=== PATIENT | male | born 1980 | race Caucasian/White ===

== ENCOUNTER 2017-05-14 14:53 | Emergency (ER) | payer OTHER ==
[2017-05-14] MEDS ORDERED: Furosemide IV* 10 MG/ML 2 ML VIAL (20 MG) IV SLOW PU ONE (15:47)
[2017-05-14 15:56] LABS: ABS Basophils 0.1 10^3/ul (0-0.2); ABS Eosinophils 0.1 10^3/ul (0-0.6); ABS Lymphocytes 1.4 10^3/ul (1.0-4.8); ABS Neutrophils 9.7 10^3/ul (1.5-7.7); ABS Nucleated RBC 0 10^3/ul; Eosinophil % 0.6 % (0-6); Hematocrit 44 % (42-52); Hemoglobin 15.5 g/dl (14.0-18.0); Lymphocyte % 11.2 % (25-47); Mean Corpuscular HGB Conc 35 g/dl (31-36); Mean Corpuscular Hemoglobin 31 pg (27-31); Mean Corpuscular Volume 87 fL (80-94); Mean Platelet Volume 8 um3 (7.4-10.4); Nucleated Red Blood Cells % 0.1; Platelet Count 235 10^3/ul (150-450); Red Blood Count 5.02 10^6/ul (4.0-5.4); Red Cell Distribution Width 13 % (10.5-15); White Blood Count 12.2 10^3/ul (3.5-10.8)
--- NOTE | 2017-05-14 16:01 | RAD ---
INDICATION: Hypertension COMPARISON: None TECHNIQUE: An AP portable view obtained at 1536 hours is submitted. FINDINGS: Bones/Soft Tissues: There are no acute bony findings. Cardiomediastinal: The cardiomediastinal silhouette is normal. Lungs: There are no infiltrates. Pleura: There are no pleural effusions. Other: None IMPRESSION: NO ACTIVE DISEASE.
[2017-05-14 16:09] LABS: EGFR Non-African American 135.8 (>60)
[2017-05-14 16:57] LABS: Urine Appearance Clear; Urine Blood Negative (Negative); Urine Color Yellow; Urine Ketones Negative (Negative); Urine Protein Negative (Negative); Urine Specific Gravity 1.008 (1.010-1.030); Urine Urobilinogen Negative (Negative)
[2017-05-14 17:33] VITALS: BP 163/82
[2017-05-14] MEDS ORDERED: Lisinopril TAB* 10 MG PO ONE (18:00)
[2017-05-14] MEDS ORDERED: Hydrochlorothiazide TAB* 25 MG PO ONE (18:00)
--- NOTE | 2017-05-14 18:35 | ED ---
Andra Díaz Thomas, scribed for Orville Hare MD on 05/14/17 at 1536 . Complex/Multi-Sys Presentation - HPI Summary HPI Summary: The patient is a 36 year old male referred form his primary care physician with elevated blood pressure. In the examination room, the patients blood pressure is 182/98. The patient has been lightheaded and dizzy in the last few days as well. - History Of Current Complaint Chief Complaint: EDHypertension Time Seen by Provider: 05/14/17 14:58 Hx Obtained From: Patient Onset/Duration: Lasting Weeks, Still Present Timing: Constant Severity Currently: Severe Location: Negative Aggravating Factor(s): Unknown Alleviating Factor(s): None Associated Signs And Symptoms: Positive: Other - Lightheadedness, dizziness - Allergies/Home Medications Allergies/Adverse Reactions: Allergies Allergy/AdvReac Type Severity Reaction Status Date / Time No Known Allergies Allergy Verified 05/14/17 15:09 PMH/Surg Hx/FS Hx/Imm Hx Endocrine/Hematology History: Reports: Hx Thyroid Disease - hypothyroidism Denies: Hx Diabetes Cardiovascular History: Reports: Hx Hypertension Respiratory History: Reports: Hx Asthma - Child kimball asthma Denies: Hx Chronic Obstructive Pulmonary Disease (COPD) GI History: Denies: Hx Ulcer - Surgical History Surgery Procedure, Year, and Place: Hernia repair 1982 Infectious Disease History: No Infectious Disease History: Denies: Hx Clostridium Difficile, Hx Hepatitis, Hx Human Immunodeficiency Virus (HIV), Hx Shingles, Hx Tuberculosis, Traveled Outside the [place] in Last 30 Days - Family History Known Family History: Positive: Hypertension - Social History Alcohol Use: Weekly Hx Substance Use: No Substance Use Type: Reports: None Hx Tobacco Use: Yes Smoking Status (MU): Former Smoker Review of Systems Negative: Fever Positive: Other - Elevated BP Neurological: Other - Dizzy, lightheaded All Other Systems Reviewed And Are Negative: Yes Physical Exam - Summary Physical Exam Summary: VITAL SIGNS: Reviewed. GENERAL: Patient is a morbidly obese male is lying comfortable in the stretcher. Patient is not in any acute respiratory distress. HEAD AND FACE: No signs of trauma. No ecchymosis, hematomas or skull depressions. No sinus tenderness. EYES: PERRLA, EOMI x 2, No injected conjunctiva, no nystagmus. EARS: Hearing grossly intact. Ear canals and tympanic membranes are within normal limits. MOUTH: Oropharynx within normal limits. NECK: Supple, trachea is midline, no adenopathy, no JVD, no carotid bruit, no c- spine tenderness, neck with full ROM. CHEST: Symmetric, no tenderness at palpation LUNGS: Clear to auscultation bilaterally. No wheezing or crackles. CVS: Regular rate and rhythm, S1 and S2 present, no murmurs or gallops appreciated. ABDOMEN: Soft, non-tender. No signs of distention. No rebound no guarding, and no masses palpated. Bowel sounds are normal. EXTREMITIES: FROM in all major joints, no edema, no cyanosis or clubbing. NEURO: Alert and oriented x 3. No acute neurological deficits. Speech is normal and follows commands. SKIN: Dry and warm Triage Information Reviewed: Yes Vital Signs On Initial Exam: Initial Vitals Temp Pulse Resp BP Pulse Ox 98.6 F 72 19 200/120 98 05/14/17 14:56 05/14/17 14:56 05/14/17 14:56 05/14/17 14:56 05/14/17 14:56 Vital Signs Reviewed: Yes Diagnostics - Vital Signs Vital Signs Temp Pulse Resp BP Pulse Ox 05/14/17 15:04 69 20 96 05/14/17 15:03 182/98 05/14/17 14:56 98.6 F 72 19 200/120 98 - Laboratory Lab Results: Lab Results 05/14/17 05/14/17 05/14/17 Range/Units 15:42 15:42 15:42 WBC (3.5-10.8) 10^3/ul RBC (4.0-5.4) 10^6/ul Hgb (14.0-18.0) g/dl Hct (42-52) % MCV (80-94) fL MCH (27-31) pg MCHC (31-36) g/dl RDW (10.5-15) % Plt Count (150-450) 10^3/ul MPV (7.4-10.4) um3 Neut % (Auto) (38-83) % Lymph % (Auto) (25-47) % Stanton % (Auto) (1-9) % Eos % (Auto) (0-6) % Baso % (Auto) (0-2) % Absolute Neuts (auto) (1.5-7.7) 10^3/ul Absolute Lymphs (auto) (1.0-4.8) 10^3/ul Absolute Monos (auto) (0-0.8) 10^3/ul Absolute Eos (auto) (0-0.6) 10^3/ul Absolute Basos (auto) (0-0.2) 10^3/ul Absolute Nucleated RBC 10^3/ul Nucleated RBC % APTT 31.0 (26.0-36.3) seconds Sodium 135 (133-145) mmol/L Potassium 3.8 (3.5-5.0) mmol/L Chloride 102 (101-111) mmol/L Carbon Dioxide 24 (22-32) mmol/L Anion Gap 9 (2-11) mmol/L BUN 10 (6-24) mg/dL Creatinine 0.66 L (0.67-1.17) mg/dL Est GFR ( Amer) 174.7 (>60) Est GFR (Non-Af Amer) 135.8 (>60) BUN/Creatinine Ratio 15.2 (8-20) Glucose 103 H (70-100) mg/dL Lactic Acid (0.5-2.0) mmol/L Calcium 9.5 (8.6-10.3) mg/dL Total Bilirubin 0.50 (0.2-1.0) mg/dL AST 31 (13-39) U/L ALT 43 (7-52) U/L Alkaline Phosphatase 74 (34-104) U/L Total Creatine Kinase 140 (10-223) U/L CK-MB (CK-2) 1.8 (0.6-6.3) ng/mL Troponin I 0.00 (<0.04) ng/mL B-Natriuretic Peptide 24 ( - 100) pg/mL Total Protein 8.0 (6.4-8.9) g/dL Albumin 4.3 (3.2-5.2) g/dL Globulin 3.7 (2-4) g/dL Albumin/Globulin Ratio 1.2 (1-3) TSH 3.03 (0.34-5.60) mcIU/mL Urine Color Urine Appearance Urine pH (5-9) Ur Specific [place] (1.010-1.030) Urine Protein (Negative) Urine Ketones (Negative) Urine Blood (Negative) Urine Nitrate (Negative) Urine Bilirubin (Negative) Urine Urobilinogen (Negative) Ur Leukocyte Esterase (Negative) Urine Glucose (Negative) 05/14/17 05/14/17 05/14/17 Range/Units 15:42 15:42 16:20 WBC 12.2 H (3.5-10.8) 10^3/ul RBC 5.02 (4.0-5.4) 10^6/ul Hgb 15.5 (14.0-18.0) g/dl Hct 44 (42-52) % MCV 87 (80-94) fL MCH 31 (27-31) pg MCHC 35 (31-36) g/dl RDW 13 (10.5-15) % Plt Count 235 (150-450) 10^3/ul MPV 8 (7.4-10.4) um3 Neut % (Auto) 79.5 (38-83) % Lymph % (Auto) 11.2 L (25-47) % Stanton % (Auto) 7.9 (1-9) % Eos % (Auto) 0.6 (0-6) % Baso % (Auto) 0.8 (0-2) % Absolute Neuts (auto) 9.7 H (1.5-7.7) 10^3/ul Absolute Lymphs (auto) 1.4 (1.0-4.8) 10^3/ul Absolute Monos (auto) 1.0 H (0-0.8) 10^3/ul Absolute Eos (auto) 0.1 (0-0.6) 10^3/ul Absolute Basos (auto) 0.1 (0-0.2) 10^3/ul Absolute Nucleated RBC 0 10^3/ul Nucleated RBC % 0.1 APTT (26.0-36.3) seconds Sodium (133-145) mmol/L Potassium (3.5-5.0) mmol/L Chloride (101-111) mmol/L Carbon Dioxide (22-32) mmol/L Anion Gap (2-11) mmol/L BUN (6-24) mg/dL Creatinine (0.67-1.17) mg/dL Est GFR ( Amer) (>60) Est GFR (Non-Af Amer) (>60) BUN/Creatinine Ratio (8-20) Glucose (70-100) mg/dL Lactic Acid 1.5 (0.5-2.0) mmol/L Calcium (8.6-10.3) mg/dL Total Bilirubin (0.2-1.0) mg/dL AST (13-39) U/L ALT (7-52) U/L Alkaline Phosphatase (34-104) U/L Total Creatine Kinase (10-223) U/L CK-MB (CK-2) (0.6-6.3) ng/mL Troponin I (<0.04) ng/mL B-Natriuretic Peptide ( - 100) pg/mL Total Protein (6.4-8.9) g/dL Albumin (3.2-5.2) g/dL Globulin (2-4) g/dL Albumin/Globulin Ratio (1-3) TSH (0.34-5.60) mcIU/mL Urine Color Yellow Urine Appearance Clear Urine pH 6.0 (5-9) Ur Specific [place] 1.008 L (1.010-1.030) Urine Protein Negative (Negative) Urine Ketones Negative (Negative) Urine Blood Negative (Negative) Urine Nitrate Negative (Negative) Urine Bilirubin Negative (Negative) Urine Urobilinogen Negative (Negative) Ur Leukocyte Esterase Negative (Negative) Urine Glucose Negative (Negative) Result Diagrams: 05/14/17 15:42 05/14/17 15:42 Lab Statement: Any lab studies that have been ordered have been reviewed, and results considered in the medical decision making process. - Radiology CXR Xray Interpretation: No Acute Changes - NO ACTIVE DISEASE. Dr. Hare has reviewed this report. Radiology Interpretation Completed By: Radiologist - EKG 14:54 Cardiac Rate: NL EKG Rhythm: Sinus Rhythm - at 68 BPM EKG Interpretation: No ST elevations. Complex Multi-Symp Course/Dx Assessment/Plan: The patient is a 36 year old male referred form his primary care physician with elevated blood pressure. In the examination room, the patients blood pressure is 182/98. The patient has been lightheaded and dizzy in the last few days as well. Test results are without significant abnormalities except WBC 12.2. Urinalysis is negative for UTI. Troponin is 0.00. Initially, the blood pressure for this patient was elevated at 20/120. The patient was given Lasix. Right now, the patients blood pressure is 167/86. Therefore, the patient will be discharged home to follow up with primary care. The patient was instructed to take Lisinopril 10 mg instead of 5 mg and follow up with her primary care provider. Since the patient is feeling better, the patient will be discharged home to follow up with his primary care provider. The patient is hemodynamically stable and alert and oriented x 3. I discussed all the findings and test results with the patient. Patient was instructed to return to the emergency room immediately if any of the symptoms return or worsens. Plan of care was discussed with the patient and understands and agrees. All questions were answered at patient satisfaction. There were no further complaints or concerns. Lung exam before discharge: CTA B/L. Good air exchange. No wheezing or crackles heard. CVS: S1 and S2 present. No murmurs appreciated. Patient is alert and oriented x 3. Patient is hemodynamically stable. Patient will be discharged home with follow up PCP in the next 2-3 days - Diagnoses Provider Diagnoses: Uncontrolled hypertension Discharge - Discharge Plan Condition: Stable Disposition: HOME Patient Education Materials: Hypertension (ED) Referrals: John Gaitan MD [Primary Care Provider] - 3 Days Additional Instructions: Follow up with your primary care physician in three days. Take Lisinopril 10 mg until your appointment with your primary care provider. Return to the emergency department for any new or worsening symptoms. The documentation as recorded by the Andra barrera Thomas accurately reflects the service I personally performed and the decisions made by , Orville Hare MD.
[2017-05-15] MEDS ORDERED: Lisinopril/HCTZ 10/12.5(NF) TAB PO ONE (17:20)
== END 2017-05-14 17:37 | disposition home or self-care (01) ==
LOC: ED 14:53
DX: I10 Essential (primary) hypertension (principal); Z87.891 Personal history of nicotine dependence
CPT/HCPCS: 36415; 71045; 80053; 81003; 82550; 82553; 83605; 83880; 84443; 84484; 85025; 85730; 93005; 96374; 99283; A9270-GY; J1940

== ENCOUNTER 2019-01-20 06:01 | Day surgery (SDC) | payer OTHER ==
[~2019-01-20 06:01] MED LIST: Buffered Lidocaine 1% SYRIN* 1 ML/SYRINGE INTRADERM ONE; Lactated Ringers 1000 ML Bag* 1,000 ML IV SCH; Metoclopramide IV* 5 MG/ML 2 ML VIAL IV SLOW PU ONE
[2019-01-20] MEDS ORDERED: Buffered Lidocaine 1% SYRIN* 1 ML/SYRINGE INTRADERM ONE (07:35)
[2019-01-20] MEDS ORDERED: hydrALAZINE IV* 20 MG/ML VIAL ONE (07:55)
[2019-01-20] MEDS ORDERED: hydrALAZINE IV* 20 MG/ML VIAL IV SLOW PU ONE (07:56)
[2019-01-20] MEDS ORDERED: Metoclopramide IV* 5 MG/ML 2 ML VIAL ONE (08:05)
[2019-01-20] MEDS ORDERED: Midazolam* 1 MG/ML 2 ML VIAL (2 MG) ONE (08:33)
[2019-01-20] MEDS ORDERED: fentaNYL* 50 MCG/ML 2 ML VIAL (100 MCG VIAL) ONE (08:33)
[2019-01-20] MEDS ORDERED: Levalbuterol HFA INHALER* 1 PUFF MDI ONE (09:09)
[2019-01-20] MEDS ORDERED: Propofol* 10 MG/ML 20 ML BTL ONE (09:15)
[2019-01-20] MEDS ORDERED: Lidocaine 2% PF * 5 ML VIAL ONE (09:15)
[2019-01-20] MEDS ORDERED: Succinylcholine* 20 MG/ML 10 ML VIAL ONE (09:15)
[2019-01-20] MEDS ORDERED: Ondansetron INJ* 2 MG/ML VIAL IV PRN (09:35)
[2019-01-20] MEDS ORDERED: Naloxone* 0.4 MG/ML 1 ML VIAL IV PRN (09:35)
[2019-01-20] MEDS ORDERED: DiMENhydriNATE IV* 50 MG/ML VIAL IV PUSH PRN (09:35)
[2019-01-20 10:36] VITALS: BP 125/75
--- NOTE | 2019-01-20 22:34 | PRO ---
DATE: 01/20/19 - ENDO REFERRING PHYSICIANS : John Gaitan; Jomar Juarez * PROCEDURE: Upper gastrointestinal endoscopy with monitored anesthesia care and gastric biopsy INDICATION: This 38-year-old man, morbidly obese, comes in for pre-bariatric assessment. He has a history of morbid obesity, type 2 diabetes, hypertension, sleep apnea, anxiety and depression. His only prior surgeries have been a left inguinal hernia repair at age 4 and removal of a freckle from the left eye in 1992. He does take some Advil sporadically. It is difficult to get that precisely defined as it is not everyday. He has never had any acid dyspeptic problems. Informed consent was obtained with an opportunity for questions, special concerns, and a travel discussion. He is provisionally in for surgery on . ENDOSCOPIST: Dr. Dang MEDICATIONS: Per Anesthesia. FINDINGS: He was positioned left side down after being intubated. ESOPHAGOGASTRODUODENOSCOPY: Larynx - not seen as the area was too narrow with opposed mucous membrane surfaces. Esophagus - easily entered, the mucosa is normal in the upper, mid, and lower esophagus with the EG junction at 43 to 44. There was no hiatal hernia and no laxity. There were no erosions. Stomach - normal contours and rugal folds. There was some minimal erythema and minimal small swollen erosions in the prepyloric area and a couple in the gastric body. They were truly minimal. Two biopsies were taken from greater curvature and also a CLOtest. Duodenum - the pylorus, bulb, and second through fourth portions were normal. IMPRESSION: Minimal gastritis - helicobacter assessment pending. Addendum: Clotest Positive - formalin negative; immunostain requested [id number]/[facility] #: [id number] [facility]
== END 2019-01-20 10:47 | disposition home or self-care (01) ==
LOC: OR 06:01
PROVIDERS: ATTEND Internal Medicine Gastroenterology
DX: Z01.818 Encounter for other preprocedural examination (principal); E66.01 Morbid (severe) obesity due to excess calories; Z68.43 Body mass index [BMI] 50.0-59.9, adult; K21.9 Gastro-esophageal reflux disease without esophagitis; K29.70 Gastritis, unspecified, without bleeding; I10 Essential (primary) hypertension; G47.33 Obstructive sleep apnea (adult) (pediatric); K76.0 Fatty (change of) liver, not elsewhere classified; E11.9 Type 2 diabetes mellitus without complications; Z79.84 Long term (current) use of oral hypoglycemic drugs; E29.1 Testicular hypofunction; E03.9 Hypothyroidism, unspecified; F41.9 Anxiety disorder, unspecified; Z87.891 Personal history of nicotine dependence
CPT/HCPCS: 87077; 88305; 88342; A9270-GY; J0330; J0360; J2250; J2704; J2765; J3010

== ENCOUNTER 2019-01-31 10:16 | Emergency (ER) | payer OTHER ==
--- NOTE | 2019-01-31 10:35 | ED ---
Hypertension - HPI Summary HPI Summary: Pt is a 38 y/o M presenting to the ED with a chief complaint of hypertension. Pt states this is a chronic issue, but this morning he was at a GI appointment when they took his blood pressure and it was around 190/110. He was supposed to have a stress test last week but his blood pressure was too high and Dr. Ngo would not do it. He normally takes 40mg Lisinopril and 12.5mg of Metoprolol. He denies CP, SOB, ENCARNACION, visual changes, or changes in gait. He reports some added stress. Medications reviewed. Allergies noted. - History of Current Complaint Chief Complaint: EDHypertension Stated Complaint: HYPERTENSION PER PT Time Seen by Provider: 01/31/19 10:25 Hx Obtained From: Patient Onset/Duration: Started Hours Ago, Still Present Timing: Constant, Lasting Hours Reported Blood Pressure Prior To Arrival: 190/110 Aggravating Factor(s): Nothing Alleviating Factor(s): Nothing Associated Signs & Symptoms: Anxiety/Stress - stress - Allergies/Home Medications Allergies/Adverse Reactions: Allergies Allergy/AdvReac Type Severity Reaction Status Date / Time No Known Allergies Allergy Verified 01/20/19 07:49 PMH/Surg Hx/FS Hx/Imm Hx Previously Healthy: Yes Endocrine/Hematology History: Reports: Hx Diabetes - boderline..taking metformin , Hx Thyroid Disease - ON MEDS HYPO Cardiovascular History: Reports: Hx Hypertension - ON MEDS PT. STATES CONTROLLED OCCAS HIGH Respiratory History: Reports: Hx Asthma - Child kimball asthma, Hx Sleep Apnea Denies: Hx Chronic Obstructive Pulmonary Disease (COPD) GI History: Reports: Other GI Disorders - BIARIATRIC SURGERY NEEDED Denies: Hx Ulcer History: Reports: Other Problems/Disorders - HYPOGONAIDISM Denies: Hx Dialysis, Hx Renal Disease Sensory History: Reports: Hx Contacts or Glasses Denies: Hx Hearing Aid Opthamlomology History: Reports: Hx Contacts or Glasses Psychiatric History: Reports: Hx Anxiety - ON MEDS CONTROLLED PT. STATES, Hx Depression - Surgical History Surgery Procedure, Year, and Place: Hernia repair 1982. REMOVAL LEFT EYE FRECKLE SCLEARA 1992 Hx Anesthesia Reactions: No Infectious Disease History: No Infectious Disease History: Denies: Hx Clostridium Difficile, Hx Hepatitis, Hx Human Immunodeficiency Virus (HIV), Hx Shingles, Hx Tuberculosis, Traveled Outside the [place] in Last 30 Days - Family History Known Family History: Positive: Hypertension - Social History Alcohol Use: Weekly Alcohol Amount: 7 DRINKS WEEKLY BEER OR WINE, not recently Hx Substance Use: No Substance Use Type: Reports: Marijuana Substance Use Comment - Amount & Last Used: 2 X YEARLY Hx Tobacco Use: Yes Smoking Status (MU): Former Smoker Review of Systems Positive: Other - HTN Eyes: Negative Negative: Chest Pain Negative: Shortness Of Breath Negative: Other - change in gait Negative: Headache Positive: Other - stressed All Other Systems Reviewed And Are Negative: Yes Physical Exam - Summary Physical Exam Summary: Constitutional: Well-developed, Well-nourished, Alert. (-) Distressed Skin: Warm, Dry HENT: Normocephalic; Atraumatic Eyes: Conjunctiva normal Neck: Musculoskeletal ROM normal neck. (-) JVD, (-) Stridor, (-) Tracheal deviation Cardio: Rhythm regular, rate normal, Heart sounds normal; Intact distal pulses; Radial pulses are 2+ and symmetric. (-) Murmur Pulmonary/Chest wall: Effort normal. (-) Respiratory distress, (-) Wheezes, (-) Rales Abd: Soft, (-) tenderness, (-) Distension, (-) Guarding, (-) Rebound Musculoskeletal: (-) Edema Lymph: (-) Cervical adenopathy Neuro: Alert, Oriented x3 Psych: Mood and affect Normal Triage Information Reviewed: Yes Vital Signs On Initial Exam: Initial Vitals Temp Pulse Resp BP Pulse Ox 97.0 F 73 18 213/111 97 01/31/19 10:20 01/31/19 10:20 01/31/19 10:20 01/31/19 10:20 01/31/19 10:20 Vital Signs Reviewed: Yes Procedures - Sedation Patient Received Moderate/Deep Sedation with Procedure: No Diagnostics - Vital Signs Vital Signs Temp Pulse Resp BP Pulse Ox 01/31/19 10:20 97.0 F 73 18 213/111 97 - Laboratory Lab Statement: Any lab studies that have been ordered have been reviewed, and results considered in the medical decision making process. Hypertension Course/Dx - Course Course Of Treatment: Patient is here with asymptomatic hypertension. Patient has been taking his blood pressure home and has been consistently having high blood pressure at the level he is today. Patient is being treated by Dr. Awan with increase of his lisinopril dose roughly 2 weeks ago. Patient has no symptoms at this time. Patient has a symptomatically hypertension. Patient' s metoprolol dose was increased from a half tablet to a full tablet every night. - Diagnoses Provider Diagnoses: Asymptomatic hypertension Discharge ED - Sign-Out/Discharge Documenting (check all that apply): Patient Departure - Discharge Plan Condition: Stable Disposition: HOME Prescriptions: Metoprolol Succinate XL TAB* [Toprol XL TAB*] 25 mg PO BEDTIME 7 Days #7 tab.xl Patient Education Materials: Chronic Hypertension (ED) Referrals: John Gaitan MD [Primary Care Provider] - Additional Instructions: Please start taking your increased dose of Metoprolol. Follow up with Dr. Gaitan as well as Dr. Ngo within the next 1-3 days. If you start experiencing chest pain, shortness of breath, one-sided weakness, or slurred speech, call 911 and return to the emergency department. - Billing Disposition and Condition Condition: STABLE Disposition: Home - Attestation Statements Document Initiated by Maritzaibe: Yes Documenting Scribe: Latasha Bruner Provider For Whom Claudio is Documenting (Include Credential): Tony Medeiros MD. Scribe Attestation: Latasha Díaz, scribed for Tony Medeiros MD. on 01/31/19 at 1936. Scribe Documentation Reviewed: Yes Provider Attestation: The documentation as recorded by the scribeLatasha accurately reflects the service I personally performed and the decisions made by , Tony Medeiros MD. Status of Scribe Document: Viewed
--- OUTSIDE RECORDS SUMMARY | 2019-01-31 10:48 | XMS REPORT | Continuity of Care Document ---
:1980 External Reference #:[id number] Author Name Garland Zavala Care Team Providers Name Role Phone John Gaitan MD - Family Care Team Information [employer] [phone] Medicine Problems Active Problems Provider Date Disturbance in sleep behavior Isaura Donis MD Onset: 07/13/2016 Obstructive sleep apnea syndrome Kelli Almeida DNP, RN, GEOSPATIAL INFORMATION SCIENTIST-BC Onset: Morbid obesity Kelli Almeida DNP, RN, GEOSPATIAL INFORMATION SCIENTIST-BC Onset: 09/18/2016 Social History Type Date Description Comments Sex Unknown Tobacco Use Start: Unknown End: Former Cigarette Unknown Smoker ETOH Use Currently consumes 7 drinks a week alcohol Tobacco Use Start: Unknown End: Patient is a former Unknown smoker Recreational Drug Use Current Drug User marijuana once or twice a year Tobacco Use Start: Unknown Heavy tobacco smoker 1PPD x 9 years Quit (more than 10 8 years ago as of cigarettes/day) 2016 Smoking Status Reviewed: 12/15/18 Heavy tobacco smoker 1PPD x 9 years Quit (more than 10 8 years ago as of cigarettes/day) 2017 Exercise Type/Frequency Exercises regularly walking/hiking 3 days a week 1-1/2 to 3 miles Allergies, Adverse Reactions, Alerts Description No Known Drug Allergies Medications Active Medications SIG Qnty Indications Ordering Date Provider Levothyroxine Sodium 1 by mouth every Unknown 07/12/2016 day 125mcg Tablets Prozac 1 by mouth every Unknown 07/12/2016 40mg Capsules day Lisinopril 3 by mouth every Unknown 07/12/2016 10mg Tablets day Flaxseed Oil 1 by mouth every Unknown 07/12/2016 1000mg day Capsules Multivitamin Adult 1 by mouth every Unknown 07/12/2016 day Tablets Metformin HCL 2 tablets once 60tabs John Gaitan 500mg daily MD Analilia Tablets Saxenda 0.6mg injected Unknown 18mg/3ML Solution dailyweek Pen-Inject one,week 2, 1.2mg daily,week-3 1.8mg daily,week-4 2.4mg daily week 5,3mg daily Testosterone 2x pumps daily Unknown 12.5mg/Act (1%) Gel Rosuvastatin Calcium 1 by mouth every Unknown 5mg day Tablets Metoprolol Succinate 1/2 tablet daily John Gaitan ER MD Analilia 25mg Tablets ER 24HR Ibuprofen 200 400-600mg every 6 Unknown 200mg hours as needed Tablets for pain. Immunizations Description No Information Available Vital Signs Date Vital Result Comment 12/15/2018 1:12pm Height 70 inches 5'10" Weight 401.00 lb Heart Rate 69 /min BP Systolic 208 mmHg recheck 177/95 - states he has white coat syndrom BP Diastolic 119 mmHg recheck 177/95 - states he has white coat syndrom O2 % BldC Oximetry 97 % BMI (Body Mass Index) 57.5 kg/m2 06/21/2018 9:39am Height 70 inches 5'10" Weight 403.00 lb Heart Rate 82 /min BP Systolic Sitting 140 mmHg Rue Lg Cuff BP Diastolic Sitting 90 mmHg Rue Lg Cuff Respiratory Rate 18 /min O2 % BldC Oximetry 96 % on Ra BMI (Body Mass Index) 57.8 kg/m2 Results Test Date Facility Test Result H/L Range Note CBC No Diff 01/03/2019 [facility] White Blood 7.5 10^3/uL Normal 3.5-10.[address] [place] [address] [phone] Red Blood Count 5.37 10^6/uL Normal 4.18-5.48 Hemoglobin 17.0 g/dL Normal 14.0-18.0 Hematocrit 48 % Normal 42-52 Mean Corpuscular Volume 90 fL Normal 80-94 Mean Corpuscular Hemoglobin 32 pg High 27-31 Mean Corpuscular HGB Conc 35 g/dL Normal 31-36 Red Cell Distribution Width 14 % Normal 10-15 Platelet Count 203 10^3/uL Normal 150-450 Mean Platelet Volume 8.5 fL Normal 7.4-10.4 Comp Metabolic 01/03/2019 [facility] Sodium 140 mmol/L Normal 135-[address] [place] [address] [phone] Potassium 4.1 mmol/L Normal 3.5-5.0 Chloride 104 mmol/L Normal 101-111 Co2 Carbon Dioxide 28 mmol/L Normal 22-32 Anion Gap 8 mmol/L Normal 2-11 Glucose 101 mg/dL High 70-100 Blood Urea Nitrogen 9 mg/dL Normal 6-24 Creatinine 0.73 mg/dL Normal 0.67-1.17 BUN/Creatinine Ratio 12.3 Normal 8-20 Calcium 9.6 mg/dL Normal 8.6-10.3 Total Protein 6.9 g/dL Normal 6.4-8.9 Albumin 4.3 g/dL Normal 3.2-5.2 Globulin 2.6 g/dL Normal 2-4 Albumin/Globulin Ratio 1.7 Normal 1-3 Total Bilirubin 0.70 mg/dL Normal 0.2-1.0 Alkaline Phosphatase 81 U/L Normal 34-104 Alt 63 U/L High 7-52 Ast 39 U/L Normal 13-39 Egfr Non- 119.6 >60 Egfr 144.7 >60 1 1 Because ethnic data is not always readily available, this report includes an eGFR for both -Americans and non- Americans. The National Kidney Disease Education Program (NKDEP) does not endorse the use of the MDRD equation for patients that are not between the ages of 18 and 70, are , have extremes of body size, muscle mass, or nutritional status, or are non- or non-. According to the National Kidney Foundation, irrespective of diagnosis, the stage of the disease is based on the level of kidney function: Stage Description GFR(mL/min/1.73 m(2)) 1 Kidney damage with normal or decreased GFR 90 2 Kidney damage with mild decrease in GFR 60-89 3 Moderate decrease in GFR 30-59 4 Severe decrease in GFR 15-29 5 Kidney failure <15 (or dialysis) Procedures Description No Information Available Medical Devices Description No Information Available Encounters Type Date Location Provider Dx Diagnosis Office Visit 12/15/2018 [facility] Chaparrita Prakash NP Z68.43 Body mass index 1:00p (BMI) 50.0-59.9, adult G47.33 Obstructive sleep apnea (adult) (pediatric) Z01.818 Encounter for other preprocedural examination Assessments Date Code Description Provider 12/15/2018 Z68.43 Body mass index (BMI) 50.0-59.9, adult Chaparrita Prakash NP 12/15/2018 G47.33 Obstructive sleep apnea (adult) (pediatric) Chaparrita Prakash NP 12/15/2018 Z01.818 Encounter for other preprocedural examination Chaparrita Prakash NP Plan of Treatment Future Appointment(s):01/20/2019 8:45 am - Ortega Dang MD at [facility] Jwpaznnubeuehyra38/19/2019 - Chaparrita Prakash NPZ68.43 Body mass index (BMI) 50.0- 59.9, ojcogH72.33 Obstructive sleep apnea (adult) (pediatric)Z01.818 Encounter for other preprocedural examination Functional Status Description No Information Available Mental Status Description No Information Available Referrals Description No Information Available
--- OUTSIDE RECORDS SUMMARY | 2019-01-31 10:48 | XMS REPORT | Continuity of Care Document ---
:1980 External Reference #:[id number] Author Name Iraida Ngo M.D. (transmitted by agent of provider Vero Strong) Address [address] [address] Care Team Providers Name Role Phone John Gaitan MD - Family Care Team Information Stand Up Comedian [phone] Medicine Problems Active Problems Provider Date Disturbance in sleep behavior Isaura Donis MD Onset: 07/13/2016 Obstructive sleep apnea syndrome Kelli Almeida DNP, RN, MAIL HANDLER ASSISTANT-BC Onset: Morbid obesity Kelli Almeida DNP, RN, MAIL HANDLER ASSISTANT-BC Onset: 09/18/2016 Social History Type Date Description [...] as of cigarettes/day) 2016 Smoking Status Reviewed: 01/12/19 Heavy tobacco smoker 1PPD x 9 years Quit (more than 10 8 years ago as of cigarettes/day) 2017 Exercise Type/Frequency Exercises regularly walking/hiking 3 days a week 1-1/2 to 3 miles Allergies, Adverse Reactions, Alerts Description No Known Drug Allergies Medications Active Medications SIG Qnty Indications Ordering Date Provider Lisinopril 1 by mouth twice 60tabs Iraida Carballo 01/26/2019 20mg Tablets daily Anika Ngo Levothyroxine Sodium 1 by mouth every Unknown 07/12/2016 day 125mcg Tablets Prozac 1 by mouth every Unknown 07/12/2016 40mg Capsules day Flaxseed Oil 1 by mouth every Unknown 07/12/2016 1000mg day Capsules Multivitamin Adult 1 by mouth every Unknown 07/12/2016 day Tablets Metformin HCL 2 tablets once 60tabs John Gaitan 500mg daily MD Analilia Tablets Saxenda 0.6mg injected Unknown 18mg/3ML Solution dailyweek Pen-Inject one,week 2, 1.2mg daily,week-3 1.8mg daily,week-4 2.4mg daily week 5,3mg daily and as directed Testosterone 2x pumps daily Unknown 12.5mg/Act (1%) Gel Rosuvastatin Calcium 1 by mouth every Unknown 5mg day Tablets Metoprolol Succinate 1/2 tablet daily John Gaitan ER AMD Diana 25mg Tablets ER 24HR Ibuprofen 200 400-600mg every 6 Unknown 200mg hours as needed Tablets for pain. Immunizations Description No Information Available Vital Signs Date Vital Result Comment 01/12/2019 10:49am Height 70 inches 5'10" Weight 401.00 lb Heart Rate 68 /min BP Systolic Sitting 192 mmHg lue large cuff BP Diastolic Sitting 90 mmHg lue large cuff BP Systolic Standing 190 mmHg lue large cuff BP Diastolic Standing 107 mmHg lue large cuff Respiratory Rate 16 /min BMI (Body Mass Index) 57.5 kg/m2 12/15/2018 1:12pm Height 70 inches 5'10" Weight 401.00 lb Heart Rate 69 /min BP Systolic 208 mmHg recheck 177/95 - states he has white coat syndrom BP Diastolic 119 mmHg recheck 177/95 - states he has white coat syndrom O2 % BldC Oximetry 97 % BMI (Body Mass Index) 57.5 kg/m2 Results Test Acquired Date Facility Test Result H/L Range Note Surgical 01/20/2019 [facility] Surgical SEE RESULT [address] [place] [address] [phone] PDFReport [id number] <SEE NOTE> Laboratory test 01/20/2019 [facility] Clotest SEE RESULT [address] [place] [address] [phone] Laboratory test 01/20/2019 [facility] Point of Care 103 mg/dL High 70-10 [address] Glucose 0 [place] [address] [phone] CBC No Diff 01/03/2019 [facility] White Blood 7.5 10^3/uL Normal 3.5-[address] Count 0.8 [place] [address] [phone] Red Blood Count 5.37 10^6/uL Normal 4.18-5.48 Hemoglobin 17.0 g/dL Normal 14.0-18.0 Hematocrit 48 % Normal 42-52 Mean Corpuscular Volume 90 fL Normal 80-94 Mean Corpuscular Hemoglobin 32 pg High 27-31 Mean Corpuscular HGB Conc 35 g/dL Normal 31-36 Red Cell Distribution Width 14 % Normal 10-15 Platelet Count 203 10^3/uL Normal 150-450 Mean Platelet Volume 8.5 fL Normal 7.4-10.4 Comp Metabolic 01/03/2019 [facility] Sodium 140 mmol/L Normal 135-[address] [place] [address] [phone] Potassium 4.1 mmol/L Normal 3.5-5.0 Chloride 104 [...] Egfr Non- 119.6 >60 Egfr 144.7 >60 4 1 SEE RESULT BELOW Name: DEVIN FRANCIS : [address]: Ortega Dang MD Acct: [id number] Unit: [id number] AGE: 38 Location: OR Re01/20/19 SEX: M Status: [facility] SPEC: [id number] JULIÁN: 01/20/19- SUBM DR: Ortega Dang MD REQ: [id number] RECD: 01/20/19 STATUS: ZARA CARMONA DR: Jomar Gaitan MD _ ORDERED: LEVEL 4 FINAL DIAGNOSIS Stomach, greater curvature, biopsy: -- Body-type gastric mucosa with mild chronic gastritis. -- No evidence of Helicobacter organisms. CLINICAL HISTORY Prebariatric POST-OPERATIVE DIAGNOSIS EGD: larynx-not seen; esophagus-normal, esophagogastric junction 43-44, normal; stomach-mild erythema, biopsy greater curvature, mild prepyloric irritation, CLOtest; duodenum-normal; conclusion/plan: gastritis GROSS DESCRIPTION The specimen is received in formalin labeled, Biopsy Gastric Greater Curvature, and consists of two marcial irregular soft tissue fragments measuring 0.3 x 0.3 by up to 0.2 cm and 0.5 x 0.2 x 0.1 cm which are submitted entirely in one cassette. Signed by and Reported on: Josselyn Cee MD 01/24/19 1053 END OF REPORT DEPARTMENT OF PATHOLOGY, [address] [place] [address] Naldo Del Rosario M.D. Director [facility] # [id number] 2 SEE RESULT BELOW Name: DEVIN FRANCIS : [address]: Ortega Dang MD Acct: [id number] Unit: [id number] AGE: 38 Location: OR Re01/20/19 SEX: M Status: BARTOLO SNYDERC SPEC: [id number] JULIÁN: 01/20/[address]: Ortega Dang MD REQ: [id number] RECD: 01/20/19 STATUS: TANMAY CARMONA DR: Devin Gaitan MD _ SOURCE: GAS ANTRUM SPDESC: ORDERED: Clotest Procedure Result Reported Site Clotest Final 01/21/19- 0821 ML Clotest Positive * ML - Main Lab . END OF REPORT DEPARTMENT OF PATHOLOGY, [address] [place] [address] Naldo Del Rosario M.D. Director [facility] # [id number] 3 Assignment Desk Editor: [id number] 4 Because ethnic data is not always readily [...] 5 Kidney failure <15 (or dialysis) Procedures Date Code Description Status 01/26/2019 06823 EKG Tracing & Interpretation Completed 01/18/2019 69525 ECHO Transthoracic, Real-Time 2D With Doppler And Color Completed Flow 01/18/2019 19325 ECHO Transthoracic, Real-Time 2D With Doppler And Color Completed Flow 01/12/2019 66108 EKG Tracing & Interpretation Completed Medical Devices Description No Information Available Encounters Type Date Location Provider Dx Diagnosis Office Visit 01/12/2019 [facility] Qutaybeh S. G47.33 Obstructive sleep 11:00a Of Fatou Ngo M.D. apnea (adult) (pediatric) E66.01 Morbid (severe) obesity due to excess calories I10 Essential (primary) hypertension R06.02 Shortness of breath Z01.810 Encounter for preprocedural cardiovascular examination R94.31 Abnormal electrocardiogram [ECG] [EKG] E78.5 Hyperlipidemia, unspecified Z87.891 Personal history of nicotine dependence Office Visit 12/15/2018 [facility] Chaparrita Z68.43 Body mass index 1:00p OBDULIO Prakash (BMI) 50.0-59.9, adult G47.33 Obstructive sleep apnea (adult) (pediatric) Z01.818 Encounter for other preprocedural examination Assessments Date Code Description Provider 01/26/2019 G47.33 Obstructive sleep apnea (adult) Iraida Ngo M.D. (pediatric) 01/26/2019 R06.02 Shortness of breath Iraida Ngo M.D. 01/26/2019 E66.01 Morbid (severe) obesity due to excess Iraida Ngo M.D. calories 01/26/2019 I10 Essential (primary) hypertension Iraida Ngo M.D. 01/18/2019 R06.02 Shortness of breath Iraida Ngo M.D. 01/18/2019 R06.02 Shortness of breath Traveling ECHO 1 01/18/2019 G47.33 Obstructive sleep apnea (adult) Traveling ECHO 1 (pediatric) 01/18/2019 E66.01 Morbid (severe) obesity due to excess Traveling ECHO 1 calories 01/18/2019 I10 Essential (primary) hypertension Traveling ECHO 1 01/18/2019 R94.31 Abnormal electrocardiogram [ECG] [EKG] Traveling ECHO 1 01/12/2019 G47.33 Obstructive sleep apnea (adult) Iraida Ngo M.D. (pediatric) 01/12/2019 E66.01 Morbid (severe) obesity due to excess Iraida Ngo M.D. calories 01/12/2019 I10 Essential (primary) hypertension Qutere Ngo M.D. 01/12/2019 R06.02 Shortness of breath Iraida Ngo M.D. 01/12/2019 Z01.810 Encounter for preprocedural Iraida Ngo M.D. cardiovascular examination 01/12/2019 R94.31 Abnormal electrocardiogram [ECG] [EKG] Iraida Ngo M.D. 01/12/2019 E78.5 Hyperlipidemia, unspecified Iraida Ngo M.D. 01/12/2019 Z87.891 Personal history of nicotine Iraida Ngo M.D. dependence 12/15/2018 Z68.43 Body mass index (BMI) 50.0-59.9, adult Chaparrita Prakash NP 12/15/2018 G47.33 Obstructive sleep apnea (adult) Chaparrita Prakash NP (pediatric) 12/15/2018 Z01.818 Encounter for other preprocedural Chaparrita Prakash NP examination Plan of Treatment Future Appointment(s):02/21/2019 9:00 am - [place] [facility] Schedule at [facility]02/21/2019 9:30 am - Iraida Ngo M.D. at [facility]02/27/2019 4:40 pm - Iraida Ngo M.D. at [facility]01/26/2019 - Iraida Ngo M.D.G47.33 Obstructive sleep apnea (adult) (pediatric)R06.02 Shortness of breathNew Orders:Stress Test, Exercise Echocardiogram, Scheduled: 02/21/19E66.01 Morbid (severe) obesity due to excess [id number] Essential (primary) hypertensionFollow up:BP check nurse one week Functional Status Description No Information Available Mental Status Description No Information Available Referrals Description No Information Available
--- OUTSIDE RECORDS SUMMARY | 2019-01-31 10:48 | XMS REPORT | Continuity of Care Document ---
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 [phone] Medicine Problems Active Problems Provider Date Disturbance in sleep behavior Isaura Donis MD Onset: 07/13/2016 Obstructive sleep apnea syndrome Kelli Almeida DNP, RN, TOBACCO SWEEPER-BC Onset: Morbid obesity Kelli Almeida DNP, RN, TOBACCO SWEEPER-BC Onset: 09/18/2016 Social History Type Date Description [...] 8 years ago as of cigarettes/day) 2016 Exercise Type/Frequency Exercises regularly walking/hiking 3 days [...] BMI (Body Mass Index) 57.8 kg/m2 Results Description No Information Available Procedures Description No Information Available Medical Devices Description No Information Available Encounters Type Date Location Provider Dx Diagnosis Office Visit 06/21/2018 [facility] Kelli Almeida, G47.33 Obstructive sleep 10:00a [facility], RN, TOBACCO SWEEPER-BC apnea (adult) 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) Z68.43 Body mass index (BMI) 50.0-59.9, adult Assessments Date Code Description Provider 12/15/2018 G47.33 Obstructive sleep apnea (adult) Chaparrita Prakash NP (pediatric) 12/15/2018 Z68.43 Body mass index (BMI) 50.0-59.9, Chaparrita Prakash NP adult 06/21/2018 G47.33 Obstructive sleep apnea (adult) Kelli Almeida DNP, RN, TOBACCO SWEEPER-BC (pediatric) 06/21/2018 Z68.43 Body mass index (BMI) 50-59.9, Kelli Almeida DNP, RN, [facility]- adult Plan of Treatment 12/15/2018 - Chaparrita Prakash NPG47.33 Obstructive sleep apnea (adult) (pediatric) New Labs:CBC No Diff, Ordered: 12/15/18Comp Metabolic Panel, Ordered: Z68.43 Body mass index (BMI) 50.0-59.9, adult Functional Status Description No Information Available Mental Status Description No Information Available Referrals Description No Information Available
--- OUTSIDE RECORDS SUMMARY | 2019-01-31 10:48 | XMS REPORT | Continuity of Care Document ---
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 Compliance Analyst [phone] Medicine Problems Active Problems Provider Date Disturbance in sleep behavior Isaura Donis MD Onset: 07/13/2016 Obstructive sleep apnea syndrome Kelli Almeida DNP, RN, RADIO COMMENTATOR-BC Onset: Morbid obesity Kelli Almeida DNP, RN, RADIO COMMENTATOR-BC Onset: 09/18/2016 Social History Type Date Description [...] as of cigarettes/day) 2016 Smoking Status Reviewed: 01/31/19 Heavy tobacco smoker 1PPD x 9 years Quit (more than 10 8 years ago as of cigarettes/day) 2017 Exercise Type/Frequency Exercises regularly walking/hiking 3 days a week 1-1/2 to 3 miles Allergies, Adverse Reactions, Alerts Description No Known Drug Allergies Medications Active Medications SIG Qnty Indications Ordering Date Provider Lansoprazole/Amoxici 1 pack per 14units Chaparrita Prakash, 01/31/2019 llin/Clarithromycin instructions daily 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 01/26/2019 20mg daily Anika Ngo Tablets Levothyroxine Sodium 1 by mouth every Unknown 07/12/2016 day 125mcg Tablets Prozac 1 by mouth every Unknown 07/12/2016 40mg Capsules day Flaxseed Oil 1 by mouth every Unknown 07/12/2016 1000mg day Capsules Multivitamin Adult 1 by mouth every Unknown 07/12/2016 day Tablets Metformin HCL 2 tablets once 60tabs John Gaitan 500mg daily MD Analilia Tablets Saxenda 3mg daily and as Unknown 18mg/3ML directed Solution Pen-Inject Testosterone 2x pumps daily Unknown 12.5mg/Act (1%) Gel Rosuvastatin Calcium 1 by mouth every Unknown day 5mg Tablets Metoprolol Succinate 1/2 tablet daily John Gaitan ER MD Analilia 25mg Tablets ER 24HR Ibuprofen 200 400-600mg every 6 Unknown 200mg hours as needed for Tablets pain. Immunizations Description No Information Available Vital Signs Date Vital Result Comment 01/31/2019 9:38am BP Systolic 191 mmHg machine, left wrist BP Diastolic 112 mmHg machine, left wrist 01/31/2019 9:05am BP Systolic 192 mmHg manual recheck left wrist BP Diastolic 100 mmHg manual recheck left wrist Results Test Acquired Date Facility Test Result H/L Range Note Surgical 01/20/2019 [facility] Surgical SEE RESULT [address] [place] [address] [phone] PDFReport [id number] <SEE NOTE> Laboratory test 01/20/2019 [facility] Clotest SEE RESULT [address] [place] [address] [phone] Laboratory test 01/20/2019 [facility] Point of Care 103 mg/dL High 70-10 [address] Glucose 0 [place] [address] [phone] CBC No Diff 01/03/2019 [facility] White Blood 7.5 10^3/uL Normal 3.5-[address] Count 0.8 [place] [address] [phone] Red Blood Count 5.37 10^6/uL Normal 4.18-5.48 Hemoglobin 17.0 g/dL Normal 14.0-18.0 Hematocrit 48 % Normal 42-52 Mean Corpuscular Volume 90 fL Normal 80-94 Mean Corpuscular Hemoglobin 32 pg High 27-31 Mean Corpuscular HGB Conc 35 g/dL Normal 31-36 Red Cell Distribution Width 14 % Normal 10-15 Platelet Count 203 10^3/uL Normal 150-450 Mean Platelet Volume 8.5 fL Normal 7.4-10.4 Comp Metabolic 01/03/2019 [facility] Sodium 140 mmol/L Normal 135-[address] [place] [address] [phone] Potassium 4.1 mmol/L Normal 3.5-5.0 Chloride 104 [...] [address]: Ortega Dang MD Acct: [id number] Unit: [id number] AGE: 38 Location: OR Re01/20/19 SEX: M Status: BARTOLO SNYDERC SPEC: [id number] JULIÁN: 01/20/19- SUBM DR: Ortega Dang MD REQ: [id number] RECD: 01/20/19 STATUS: ZARA CARMONA DR: Jomar [...] 1053 END OF REPORT DEPARTMENT OF PATHOLOGY, [address] [place] [address] Naldo Del Rosario M.D. Director [facility] # [id number] 2 SEE RESULT BELOW Name: DEVIN FRANCIS : [address]: Ortega Dang MD Acct: [id number] Unit: [id number] AGE: 38 Location: OR Re01/20/19 SEX: M Status: DEP SDC SPEC: [id number] JULIÁN: 01/20/[address]: Ortega Dang MD REQ: [id number] RECD: 01/20/19 STATUS: TANMAY CARMONA DR: Devin Gaitan MD _ SOURCE: GAS ANTRUM SPDESC: ORDERED: Clotest Procedure Result Reported Site Clotest Final 01/21/19820 ML Clotest Positive * ML - Main Lab . END OF REPORT DEPARTMENT OF PATHOLOGY, [address] [place] [address] Naldo Del Rosario M.D. Director [facility] # [id number] 3 Shank Pinner: [id number] 4 Because ethnic data is not always [...] dialysis) Procedures Date Code Description Status 01/26/2019 83160 EKG Tracing & Interpretation Completed 01/18/2019 54230 ECHO Transthoracic, Real-Time 2D With Doppler And Color Completed Flow 01/18/2019 90971 ECHO Transthoracic, Real-Time 2D With Doppler And Color Completed Flow 01/12/2019 28105 EKG Tracing & Interpretation Completed Medical Devices Description No Information Available Encounters Type Date Location Provider Dx Diagnosis Office Visit 01/12/2019 [facility] Qutaybronny S. G47.33 Obstructive sleep 11:00a Of Fatou Ngo M.D. apnea (adult) (pediatric) E66.01 Morbid (severe) obesity due to excess calories I10 Essential (primary) hypertension R06.02 Shortness of breath Z01.810 Encounter for preprocedural cardiovascular examination R94.31 Abnormal electrocardiogram [ECG] [EKG] E78.5 Hyperlipidemia, unspecified Z87.891 Personal history of nicotine dependence Office Visit 12/15/2018 [facility]astroenterology Chaparrita Z68.43 Body mass index 1:00p OBDULIO Prakash (BMI) 50.0-59.9, adult G47.33 Obstructive sleep apnea (adult) (pediatric) Z01.818 Encounter for other preprocedural examination Assessments Date Code Description Provider 01/26/2019 G47.33 Obstructive sleep apnea (adult) Iraida gNo M.D. (pediatric) 01/26/2019 R06.02 Shortness of breath [...] M.D. calories 01/12/2019 I10 Essential (primary) hypertension Iraida Ngo M.D. 01/12/2019 R06.02 Shortness of breath [...] Prakash NP examination Plan of Treatment Future Appointment(s):03/14/2019 8:15 am - Chaparrita Prakash NP at [facility] Gouckhaqsmwyuaqj31/08/2019 9:00 am - Nurse Visit cc at [facility]2018 9:00 am - [place] [facility] Schedule at [facility]02/21/2019 9:30 am - Iraida Ngo M.D. at [facility]02/27/2019 4:40 pm - Iraida Ngo M.D. at [facility] Functional Status Description No Information Available Mental Status Description No Information Available Referrals Description No Information Available
--- OUTSIDE RECORDS SUMMARY | 2019-01-31 10:48 | XMS REPORT | Continuity of Care Document ---
:1980 External Reference #:[id number] Author Name John Ashby M.D. Address [address] [place] [address] Care Team Providers Name Role Phone John Gaitan M.D. 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 Medicine Problems Active Problems Provider Date Hypercholesterolemia Onset: Hyperthyroidism Onset: Essential hypertension Onset: Type 2 diabetes mellitus Onset: Social History Type Date Description Comments Sex Unknown ETOH Use Occasionally consumes alcohol Tobacco Use Start: Unknown End: Patient is a former Quit 9 years ago Unknown smoker Recreational Drug Use Denies Drug Use Smoking Status Reviewed: 12/08/18 Patient is a former Quit 9 years ago smoker Allergies, Adverse Reactions, Alerts Active Allergies Reaction Severity Comments Date Seasonal 07/06/2017 Medications Active Medications SIG Qnty Indications Ordering Provider Date Lisinopril Take 1 And 1/2 Unknown 10mg Tablets Tablets By Mouth Every Day Levothyroxine Sodium Take 1 Tablet By Unknown Mouth Every Day 125mcg Tablets Rosuvastatin Calcium Take 1 Tablet By Unknown 5mg Mouth Every Day Tablets Fluoxetine HCL Take 1 Capsule By Unknown 40mg Mouth Every Day Capsules Metformin HCL Take 1 Tablet By Unknown 500mg Mouth With Tablets Breakfast And Take 2 Tablets With Dinner Multivitamin Adult Unknown Tablets Immunizations Description No Information Available Vital Signs Description No Information Available Results Description No Information Available Procedures Description No Information Available Medical Devices Description No Information Available Encounters Description No Information Available Assessments Date Code Description Provider 12/08/2018 E11.9 Type 2 diabetes mellitus without John Ashby M.D. complications 12/08/2018 H52.13 Myopia, bilateral John Ashby M.D. Plan of Treatment 12/08/2018 - John Ashby M.D.E11.9 Type 2 diabetes mellitus without complicationsComments:Smoking can increase the risk of developing or worsening any eye related disease, as well as affect your overall health. If you are a smoker, we strongly recommend that you quit.If you are not a smoker, we strongly recommend that you do not start. You have diabetes. I do not detect any changes in both of your retinas from diabetes at this time. Proper control of your diabetes is important for the health of your eyes. Changes in your eyes from diabetes can happen without symptoms, so it is important that you have your eyes examined.Follow up:1 Year Follow Up DFE You can expect to have your eyes dilated at your next visit. If Dr. Ashby orders any additional testing, it may require extra time. We recommend that you bring sunglasses, as dilation drops often make you light sensitive until they wear off. We always recommend you bring someone to drive you home if you are uncomfortable driving with your eyes dilated. If you have any questions before your next visit, feel free to call our office at .h52.13 Myopia, bilateralComments:You have Myopia, or near sightedness. I have given you a prescription for glasses. Functional Status Description No Information Available Mental Status Description No Information Available Referrals Description No Information Available
--- OUTSIDE RECORDS SUMMARY | 2019-01-31 10:48 | XMS REPORT | Continuity of Care Document ---
:1980 External Reference #:[id number] Author Name Iraida Ngo M.D. (transmitted by agent of provider Geovanna Craven) Address [address] [address] Care Team Providers Name Role Phone John Gaitan MD - Family Care Team Information Reproductive Surgeon [phone] Medicine Problems Active Problems Provider Date Disturbance in sleep behavior Isaura Donis MD Onset: 07/13/2016 Obstructive sleep apnea syndrome Kelli Almeida DNP, RN, CLOTHING PATTERNMAKER-BC Onset: Morbid obesity Kelli Almeida DNP, RN, CLOTHING PATTERNMAKER-BC Onset: 09/18/2016 Social History Type Date Description [...] (Body Mass Index) 57.5 kg/m2 Results Test Date Facility Test Result H/L Range Note CBC No Diff 01/03/2019 [facility] White Blood 7.5 10^3/uL Normal 3.5-10.[address] [place] [address] [phone] Red Blood Count 5.37 10^6/uL Normal 4.18-5.48 Hemoglobin 17.0 g/dL Normal 14.0-18.0 Hematocrit 48 % Normal 42-52 Mean Corpuscular Volume 90 fL Normal 80-94 Mean Corpuscular Hemoglobin 32 pg High 27-31 Mean Corpuscular HGB Conc 35 g/dL Normal 31-36 Red Cell Distribution Width 14 % Normal 10-15 Platelet Count 203 10^3/uL Normal 150-450 Mean Platelet Volume 8.5 fL Normal 7.4-10.4 Comp Metabolic 01/03/2019 [facility] Sodium 140 mmol/L Normal 135-[address] [place] [address] [phone] Potassium 4.1 mmol/L Normal 3.5-5.0 Chloride 104 [...] (or dialysis) Procedures Date Code Description Status 01/12/2019 61204 EKG Tracing & Interpretation Completed Medical Devices Description No Information Available Encounters Type Date Location Provider Dx Diagnosis Office Visit 12/15/2018 [facility] Gastroenterology Chaparrita Prakash NP Z68.43 Body mass index 1:00p (BMI) 50.0-59.9, adult G47.33 Obstructive sleep apnea (adult) (pediatric) Z01.818 Encounter for other preprocedural examination Assessments Date Code Description Provider 01/12/2019 G47.33 Obstructive sleep apnea (adult) Iraida Ngo M.D. (pediatric) 01/12/2019 E66.01 Morbid (severe) obesity due to excess Iraida Ngo M.D. calories 01/12/2019 I10 Essential (primary) hypertension Iraida Ngo M.D. 01/12/2019 R06.02 Shortness of breath Iraida Ngo M.D. 01/12/2019 Z01.810 Encounter for preprocedural Iraida Ngo M.D. cardiovascular examination 12/15/2018 Z68.43 Body mass index (BMI) 50.0-59.9, adult Chaparrita Prakash NP 12/15/2018 G47.33 Obstructive sleep apnea (adult) Chaparrita Prakash NP (pediatric) 12/15/2018 Z01.818 Encounter for other preprocedural Chaparrita Prakash NP examination Plan of Treatment Future Appointment(s):02/27/2019 4:40 pm - Iraida Ngo M.D. at [facility]01/26/2019 8:00 am - [place] [facility] Schedule at [facility]01/26/2019 8:30 am - Iraida Ngo M.D. at [facility]01/18/2019 9:00 am - Traveling ECHO 1 at [facility] 8:45 am - Ortega Dang MD at [facility] Rmxacicuxogdmfzd12/17/2019 - Iraida Ngo M.D.G47.33 Obstructive sleep apnea (adult) (pediatric) E66.01 Morbid (severe) obesity due to excess [id number] Essential (primary) mwonatuoisqnD49.02 Shortness of breathNew Orders:Echocardiogram, Scheduled: Stress Test, Exercise Echocardiogram, Scheduled: 01/26/19Z01.810 Encounter for preprocedural cardiovascular examinationFollow up:ov 02/2019 for final clearance and before his surgery Functional Status Description No Information Available Mental Status Description No Information Available Referrals Description No Information Available
--- OUTSIDE RECORDS SUMMARY | 2019-01-31 10:48 | XMS REPORT | Continuity of Care Document ---
:1980 External Reference #:[id number] Author Name Iraida Ngo M.D. (transmitted by agent of provider Josselyn Kerr) Address [address] [address] Care Team Providers Name Role Phone John Gaitan MD - Family Care Team Information Copyholder [phone] Medicine Problems Active Problems Provider Date Disturbance in sleep behavior Isaura Donis MD Onset: 07/13/2016 Obstructive sleep apnea syndrome Kelli Almeida DNP, RN, TANDEM OPERATOR-BC Onset: Morbid obesity Kelli Almeida DNP, RN, TANDEM OPERATOR-BC Onset: 09/18/2016 Social History Type Date Description [...] Test Result H/L Range Note Surgical 01/20/2019 [facility] Surgical SEE RESULT [address] [place] [address] [phone] PDFReport [id number] <SEE NOTE> Laboratory test 01/20/2019 [facility] Clotest SEE RESULT [address] [place] [address] [phone] Laboratory test 01/20/2019 [facility] Point of Care 103 mg/dL High 70-10 [address] Glucose 0 [place] [address] [phone] CBC No Diff 01/03/2019 [facility] White Blood 7.5 10^3/uL Normal 3.5-[address] Count 0.8 [place] [address] [phone] Red Blood Count 5.37 10^6/uL Normal 4.18-5.48 Hemoglobin 17.0 g/dL Normal 14.0-18.0 Hematocrit 48 % Normal 42-52 Mean Corpuscular Volume 90 fL Normal 80-94 Mean Corpuscular Hemoglobin 32 pg High 27-31 Mean Corpuscular HGB Conc 35 g/dL Normal 31-36 Red Cell Distribution Width 14 % Normal 10-15 Platelet Count 203 10^3/uL Normal 150-450 Mean Platelet Volume 8.5 fL Normal 7.4-10.4 Comp Metabolic 01/03/2019 [facility] Sodium 140 mmol/L Normal 135-[address] [place] [address] [phone] Potassium 4.1 mmol/L Normal 3.5-5.0 Chloride 104 [...] [address]: Ortega Dang MD Acct: [id number] Unit: [id number] AGE: 38 Location: OR Re01/20/19 SEX: M Status: [facility] SPEC: [id number] JULIÁN: 01/20/19- SUBM DR: Ortega Dang MD REQ: [id number] RECD: 01/20/19 STATUS: ZARA CARMONA DR: Jomar [...] 1053 END OF REPORT DEPARTMENT OF PATHOLOGY, [address] [place] [address] Naldo Del Rosario M.D. Director [facility] # [id number] 2 SEE RESULT BELOW Name: DEVIN FRANCIS : [address]: Ortega Dang MD Acct: [id number] Unit: [id number] AGE: 38 Location: OR Re01/20/19 SEX: M Status: [facility]O [facility] SPEC: [id number] JULIÁN: 01/20/[address] [facility] [address]: Ortega Dang MD REQ: [id number] RECD: 01/20/19 STATUS: TANMAY CARMONA DR: Devin Gaitan MD _ SOURCE: GAS ANTRUM SPDESC: ORDERED: Clotest Procedure Result Reported Site Clotest Final 01/21/19- 0821 ML Clotest Positive * ML - Main Lab . END OF REPORT DEPARTMENT OF PATHOLOGY, [address] [place] [address] Naldo Del Rosario M.D. Director [facility] # [id number] 3 Brim Stretcher: [id number] 4 Because ethnic data is not always [...] dialysis) Procedures Date Code Description Status 01/26/2019 82312 EKG Tracing & Interpretation Completed 01/18/2019 09911 ECHO Transthoracic, Real-Time 2D With Doppler And Color Completed Flow 01/18/2019 93516 ECHO Transthoracic, Real-Time 2D With Doppler And Color Completed Flow 01/12/2019 22195 EKG Tracing & Interpretation Completed Medical Devices Description No Information Available Encounters Type Date Location Provider Dx Diagnosis Office Visit 01/12/2019 [facility] Iraida Carballo G47.33 Obstructive sleep 11:00a Of Fatou Ngo M.D. apnea (adult) (pediatric) E66.01 Morbid (severe) obesity due to excess calories I10 Essential (primary) hypertension R06.02 Shortness of breath Z01.810 Encounter for preprocedural cardiovascular examination R94.31 Abnormal electrocardiogram [ECG] [EKG] E78.5 Hyperlipidemia, unspecified Z87.891 Personal history of nicotine dependence Office Visit 12/15/2018 [facility] Gastroenterology Chaparrita Z68.43 Body mass index [...] Prakash NP examination Plan of Treatment Future Appointment(s):02/03/2019 9:00 am - Nurse Visit cc at [facility]02/21/2019 9:00 am - [place] [facility] Schedule at [facility]2018 9:30 am - Iraida Ngo M.D. at [facility]02/27/2019 4: 40 pm - Iraida Ngo M.D. at [facility]01/26/2019 - Iraida Ngo M.D.G47.33 Obstructive sleep apnea (adult) (pediatric)R06.02 Shortness of breathNew Orders:Stress Test, Exercise Echocardiogram, Scheduled: 02/21/19E66.01 Morbid (severe) obesity due to excess aozcnidnL68 Essential ( primary) hypertensionFollow up:BP check nurse one week Functional Status Description No Information Available Mental Status Description No Information Available Referrals Description No Information Available
[2019-01-31 10:50] VITALS: BP 187/101
== END 2019-01-31 10:48 | disposition home or self-care (01) ==
LOC: ED 10:16
DX: I10 Essential (primary) hypertension (principal); F43.9 Reaction to severe stress, unspecified; E03.9 Hypothyroidism, unspecified; E11.9 Type 2 diabetes mellitus without complications; Z79.84 Long term (current) use of oral hypoglycemic drugs; F41.9 Anxiety disorder, unspecified; Z87.891 Personal history of nicotine dependence
CPT/HCPCS: 99282

== ENCOUNTER 2019-02-11 21:30 | Emergency (ER) | payer OTHER ==
--- NOTE | 2019-02-11 22:18 | ED ---
Hypertension - HPI Summary HPI Summary: Patient complains of elevated BP reading of 220/115 during routine blood pressure check. Patient states he is doing routine blood checks per product representative. Blood pressure meds have recently been adjusted 1 week. Currently taking hydrochlorothiazide, lisinopril and metoprolol tartrate. Patient states past week BP has been averaging around 150/90. Patient was at rest watching a movie during initial blood pressure check. Patient states he waited 15 minutes took blood pressure reading again and it was similarly elevated. Patient called his father who is in the ER physician who told patient to to lie down and rest for an hour and recheck. Patient did so and recheck and blood pressure was still elevated. Patient also complains of associated symptoms of feeling jittery, sweaty, and left side lower rib pain 1 hour. Denies SOB, trauma, fever, cough, sore throat, N/3/D, abdominal pain, change in urine, change in BM. Chest pain described as left lower ribs, dull, rated 2 out of 10 at worst, constant. Medical history is HTN, hypothyroid, DM, HDL. Denies excessive caffeine, use of energy drinks, recreational stimulants. - History of Current Complaint Chief Complaint: EDChestWallPain Stated Complaint: HIGH BP AND CHEST TIGHTNESS PER PT Time Seen by Provider: 02/11/19 21:53 Hx Obtained From: Patient Onset/Duration: Started Minutes Ago Timing: Constant Aggravating Factor(s): Nothing Alleviating Factor(s): Nothing Associated Signs & Symptoms: Chest Pain - Allergies/Home Medications Allergies/Adverse Reactions: Allergies Allergy/AdvReac Type Severity Reaction Status Date / Time No Known Allergies Allergy Verified 02/11/19 21:38 PMH/Surg Hx/FS Hx/Imm Hx Endocrine/Hematology History: Reports: Hx Diabetes - boderline..taking metformin , Hx Thyroid Disease - ON MEDS HYPO Cardiovascular History: Reports: Hx Hypertension - ON MEDS PT. STATES CONTROLLED OCCAS HIGH Respiratory History: Reports: Hx Asthma - Child kimball asthma, Hx Sleep Apnea Denies: Hx Chronic Obstructive Pulmonary Disease (COPD) GI History: Reports: Other GI Disorders - BIARIATRIC SURGERY NEEDED Denies: Hx Ulcer History: Reports: Other Problems/Disorders - HYPOGONAIDISM Denies: Hx Dialysis, Hx Renal Disease Sensory History: Reports: Hx Contacts or Glasses Denies: Hx Hearing Aid Opthamlomology History: Reports: Hx Contacts or Glasses EENT History: Denies: Hx Deafness Neurological History: Denies: Hx Dementia Psychiatric History: Reports: Hx Anxiety - ON MEDS CONTROLLED PT. STATES, Hx Depression - Surgical History Surgery Procedure, Year, and Place: Hernia repair 1982. REMOVAL LEFT EYE FRECKLE SCLEARA 1992 Hx Anesthesia Reactions: No Infectious Disease History: No Infectious Disease History: Denies: Hx Clostridium Difficile, Hx Hepatitis, Hx Human Immunodeficiency Virus (HIV), Hx Shingles, Hx Tuberculosis, Traveled Outside the [place] in Last 30 Days - Family History Known Family History: Positive: Hypertension - Social History Alcohol Use: Weekly Alcohol Amount: 7 DRINKS WEEKLY BEER OR WINE, not recently Hx Substance Use: No Substance Use Type: Reports: Marijuana Substance Use Comment - Amount & Last Used: 2 X YEARLY Hx Tobacco Use: Yes Smoking Status (MU): Former Smoker Review of Systems Positive: Skin Diaphoresis Eyes: Negative ENT: Negative Positive: Chest Pain Respiratory: Negative Gastrointestinal: Negative Genitourinary: Negative Musculoskeletal: Negative Skin: Negative Neurological: Negative Psychological: Normal All Other Systems Reviewed And Are Negative: Yes Physical Exam - Summary Physical Exam Summary: Chest pain nonreproducible. Triage Information Reviewed: Yes Vital Signs On Initial Exam: Initial Vitals Temp Pulse Resp BP Pulse Ox 98.6 F 85 18 195/117 98 02/11/19 21:38 02/11/19 21:38 02/11/19 21:38 02/11/19 21:38 02/11/19 21:38 Vital Signs Reviewed: Yes Appearance: Positive: Well-Appearing Skin: Positive: Warm Head/Face: Positive: Normal Head/Face Inspection Eyes: Positive: Normal Neck: Positive: Supple Respiratory/Lung Sounds: Positive: Clear to Auscultation Cardiovascular: Positive: Normal Abdomen Description: Positive: Nontender Musculoskeletal: Positive: Normal Neurological: Positive: Normal Psychiatric: Positive: Normal AVPU Assessment: Alert - Hamilton Coma Scale Best Eye Response: 4 - Spontaneous Best Motor Response: 6 - Obeys Commands Best Verbal Response: 5 - Oriented Coma Scale Total: 15 Procedures - Sedation Patient Received Moderate/Deep Sedation with Procedure: No Diagnostics - Vital Signs Vital Signs Temp Pulse Resp BP Pulse Ox 02/11/19 21:38 98.6 F 85 18 195/117 98 - Laboratory Result Diagrams: 02/11/19 22:25 02/11/19 22:25 Lab Statement: Any lab studies that have been ordered have been reviewed, and results considered in the medical decision making process. Hypertension Course/Dx - Course Course Of Treatment: Patient complains of elevated BP reading of 220/115 during routine blood pressure check. Patient states he is doing routine blood checks per product representative. Blood pressure meds have recently been adjusted 1 week. Currently taking hydrochlorothiazide, lisinopril and metoprolol tartrate. Patient states past week BP has been averaging around 150/90. Patient was at rest watching a movie during initial blood pressure check. Patient states he waited 15 minutes took blood pressure reading again and it was similarly elevated. Patient called his father who is in the ER physician who told patient to to lie down and rest for an hour and recheck. Patient did so and recheck and blood pressure was still elevated. Patient also complains of associated symptoms of feeling jittery, sweaty, and left side lower rib pain 1 hour. Denies SOB, trauma, fever, cough, sore throat, N/3/D, abdominal pain, change in urine, change in BM. Chest pain described as left lower ribs, dull, rated 2 out of 10 at worst, constant. Medical history is HTN, hypothyroid, DM, HDL. Denies excessive caffeine, use of energy drinks, recreational stimulants. Elevated blood pressure. Vital signs otherwise within normal limits. Labs unremarkable. EKG sinus rhythm, heart rate 82. Discussed patient with Dr. Prado who recommends not treating asymptomatic hypertension. Patient advised to follow-up with Dr. Ngo cardiology Wednesday morning and/or to return to the ED for any new or worsening symptoms. Patient understands and approves of plan. - Diagnoses Provider Diagnoses: Hypertension Discharge ED - Sign-Out/Discharge Documenting (check all that apply): Patient Departure - Discharge Plan Condition: Stable Disposition: HOME Patient Education Materials: Hypertension (ED) Referrals: John Gaitan MD [Primary Care Provider] - Additional Instructions: Follow-up with your product representative Wednesday morning for further evaluation of elevated blood pressure. Return to the ED for any new or worsening symptoms. - Billing Disposition and Condition Condition: STABLE Disposition: Home
[2019-02-11 22:34] LABS: ABS Basophils 0.1 10^3/ul (0-0.2); ABS Eosinophils 0.1 10^3/ul (0-0.6); ABS Monocytes 0.7 10^3/ul (0-0.8); ABS Neutrophils 7.6 10^3/ul (1.5-7.7); Eosinophil % 1.2 %; Hematocrit 51 % (42-52); Hemoglobin 17.7 g/dL (14.0-18.0); Lymphocyte % 10.7 %; Mean Corpuscular HGB Conc 34 g/dL (31-36); Mean Corpuscular Hemoglobin 31 pg (27-31); Mean Corpuscular Volume 89 fL (80-94); Nucleated Red Blood Cells % 0.1; Platelet Count 204 10^3/uL (150-450); Red Blood Count 5.76 10^6 /uL (4.18-5.48); Red Cell Distribution Width 13 % (10-15); White Blood Count 9.5 10^3/uL (3.5-10.8)
[2019-02-11 22:50] LABS: Albumin 4.3 g/dL (3.2-5.2); Albumin/Globulin Ratio 1.2 (1-3); BUN/Creatinine Ratio 19.5 (8-20); C Reactive Protein 5.25 mg/L (<8.01); Calcium 9.5 mg/dL (8.6-10.3); EGFR African American 136.1 (>60); EGFR Non-African American 112.5 (>60); Globulin 3.5 g/dL (2-4); Total Bilirubin 0.4 mg/dL (0.2-1.0); Total Protein 7.8 g/dL (6.4-8.9)
[2019-02-11 22:52] LABS: Troponin I 0.01 ng/mL (<0.04)
[2019-02-11 23:11] LABS: TSH (Thyroid Stimulating Horm) 4.8 mcIU/mL (0.34-5.60)
[2019-02-11 23:14] LABS: Potassium 3.8 mmol/L (3.5-5.0)
[2019-02-11 23:46] VITALS: BP 173/103
== END 2019-02-11 23:50 | disposition home or self-care (01) ==
LOC: ED 21:30
DX: I10 Essential (primary) hypertension (principal); E03.9 Hypothyroidism, unspecified; R73.03 Prediabetes; F41.9 Anxiety disorder, unspecified; Z87.891 Personal history of nicotine dependence
CPT/HCPCS: 36415; 80053; 84443; 84484; 85025; 86140; 93005; 99283

== ENCOUNTER 2019-03-07 10:06 | Inpatient (IN) | payer OTHER ==
[~2019-03-07 10:06] MED LIST changes: +Famotidine IV* 10 MG/ML 2 ML (20 mg) IV ONE; -Metoclopramide IV* 5 MG/ML 2 ML VIAL IV SLOW PU ONE
[2019-03-07] MEDS ORDERED: Heparin VIAL(*) 5000 UNITS/ML VIAL (FIVE THOUSAND) ONE (11:18)
[2019-03-07] MEDS ORDERED: ceFAZolin 2 GM PREMIX in ORs 2 GM/50 ML BAG ONE (11:19)
[2019-03-07] MEDS ORDERED: ceFAZolin 1 GM ADVAN(*) 1 GM ADDV.VIAL IVPB ONE (11:19)
[2019-03-07] MEDS ORDERED: Famotidine IV* 10 MG/ML 2 ML (20 mg) ONE (11:19)
[2019-03-07] MEDS ORDERED: Rocuronium* 10 MG/ML VIAL ONE ×2 (11:45→13:34)
[2019-03-07] MEDS ORDERED: Lidocaine 2% PF * 5 ML VIAL ONE (11:45)
[2019-03-07] MEDS ORDERED: Dexamethasone IV* 4 MG/ML 1 ML (4 MG) ONE (11:45)
[2019-03-07] MEDS ORDERED: Propofol* 10 MG/ML 20 ML BTL ONE ×2 (11:45→13:37)
[2019-03-07] MEDS ORDERED: fentaNYL* 50 MCG/ML 5 ML VIAL (250 MCG VIAL) ONE (11:45)
[2019-03-07] MEDS ORDERED: Ketorolac INJ* 30 MG/ML 1 ML VIAL ONE (11:45)
[2019-03-07] MEDS ORDERED: Ondansetron INJ* 2 MG/ML VIAL ONE ×2 (11:45→15:41)
[2019-03-07] MEDS ORDERED: Midazolam* 1 MG/ML 5 ML VIAL (5 MG) ONE (11:46)
[2019-03-07] MEDS ORDERED: KETAMINE HCL* 50 MG/ML 10 ML VIAL ONE (11:46)
[2019-03-07] MEDS ORDERED: Methylene Blue 0.5 %* 50 MG/10 ML AMP IV ONE (12:12)
[2019-03-07] MEDS ORDERED: Bupivacaine 0.25% EPI 200,000* 30 ML SDV ONE (12:12)
[2019-03-07] MEDS ORDERED: Neostigmine Methylsulfate* 1 MG/ML 10 ML VIAL (1 mg/ml) ONE (12:15)
[2019-03-07] MEDS ORDERED: EPHEDrine (Pressors)* 50 MG/ML VIAL ONE (13:29)
[2019-03-07] MEDS ORDERED: fentaNYL* 50 MCG/ML 2 ML VIAL (100 MCG VIAL) ONE ×2 (13:53→14:44)
[2019-03-07] MEDS ORDERED: Naloxone* 0.4 MG/ML 1 ML VIAL IV PRN (14:04)
[2019-03-07] MEDS ORDERED: Scopolamine 1.5 mg* PATCH TRANSDERM PRN (14:04)
[2019-03-07] MEDS ORDERED: fentaNYL* 50 MCG/ML 2 ML VIAL (100 MCG VIAL) IV PRN (14:04)
[2019-03-07] MEDS ORDERED: Ondansetron INJ* 2 MG/ML VIAL IV PRN ×2 (14:04→15:42)
[2019-03-07] MEDS ORDERED: Acetaminophen IV 1GM/100ML * 1,000 MG/100 ML VIAL IVPB ONE (14:04)
[2019-03-07] MEDS ORDERED: Glycopyrrolate IV* 0.2 MG/ML 1 ML VIAL ONE ×2 (15:15)
[2019-03-07] MEDS ORDERED: Scopolamine 1.5 mg* PATCH ONE (15:40)
[2019-03-07] MEDS ORDERED: Acetaminophen IV 1GM/100ML * 100 ML ONE (15:41)
[2019-03-07] MEDS ORDERED: Acetaminophen ADULT LIQ* 650 MG/20.3 ML UDC PO PRN (15:42)
--- NOTE | 2019-03-07 15:42 | BRIEFOPN ---
Brief Operative/Procedure Note - Operation Details Pre-Op Diagnosis: morbid obesity Post-Op Diagnosis: same Procedures: laparoscopic gabe en y gastric bypass Surgeon(s)/Proceduralists: Ann. Assist: COCO Marroquin Anesthesia: GET Estimated Blood Loss: < 20 ml; IVF: 2400 ml RL Findings: as above Specimen(s)/Culture(s) Description: none Complications: none
[2019-03-07] MEDS ORDERED: traMADol TAB* 50 MG PO PRN (15:54)
[2019-03-07] MEDS ORDERED: HYDROmorphone INJ1* 1 MG/ML SYRINGE ONE ×2 (15:55→16:13)
[2019-03-07] MEDS: HYDROmorphone INJ1* 1 MG/ML SYRINGE IV PRN ×2 (15:56→16:06)
[2019-03-07] MEDS: Lactated Ringers 1000 ML Bag* 1,000 ML IV SCH ×2 (17:45→23:35)
[2019-03-07] MEDS: Ketorolac INJ* 30 MG/ML 1 ML VIAL IV SCH ×2 (18:06→23:32)
[2019-03-07] MEDS: Famotidine IV* 10 MG/ML 2 ML (20 mg) IV SLOW PU SCH (20:29)
[2019-03-07] MEDS: HYDROmorphone INJ* 0.5 MG/0.5 ML SYRINGE IV SLOW PU PRN (20:31)
[2019-03-07] MEDS: Heparin VIAL(*) 5000 UNITS/ML VIAL (FIVE THOUSAND) SUBCUT SCH (21:32)
--- NOTE | 2019-03-07 22:08 | OP ---
CC: [facility]; John Gaitan MD * DATE OF OPERATION: 03/07/19 - ROOM #351 DATE OF : 78 SURGEON: Jomar Juarez MD. GEOSCIENCES ASSOCIATE PROFESSOR: COCO Schaffer. ANESTHESIOLOGIST: Quentin Pate MD. ANESTHESIA: General endotracheal. PRE-OP DIAGNOSIS: Clinically severe obesity. POST-OP DIAGNOSIS: Clinically severe obesity. OPERATIVE PROCEDURE: Laparoscopic Pollo-en-Y gastric bypass. ESTIMATED BLOOD LOSS: Less than 50 mL. IV FLUIDS: Crystalloids. SPECIMENS: None. DRAINS: None. COMPLICATIONS: None. COUNTS: The instrument, needle, and sponge counts were correct. DESCRIPTION OF PROCEDURE: The patient was brought to the operating room, placed on the table supine. Sequential compression devices were placed on both lower extremities. General anesthesia was administered. The abdomen was prepped and draped in the usual sterile fashion. A time-out was performed. Local anesthetic was infiltrated into the skin and soft tissue prior to making each incision. Entry to the abdomen was through a left upper quadrant incision accommodating a 12 mm Optical trocar. After accessing the peritoneal cavity, carbon dioxide was insufflated to a pressure of 15 mmHg. Under direct visualization, 12 mm bladeless trocars was placed in the supraumbilical midline and also in the right upper quadrant. 5 mm bladeless trocars were placed in the right upper quadrant medially and left upper quadrant laterally. A Taylor liver retractor was placed percutaneously in the subxiphoid position and used to elevate the left lobe of the liver. The liver appeared to have normal size and texture. The stomach appeared to have normal anatomy. Normalization of the cardia and stomach away from the left bradford of the diaphragm was performed bluntly and with the use of the LigaSure. Subsequently, perigastric dissection was undertaken in the lesser curvature and the lesser sac was entered and then with several firings of the Endo TIERNEY stapler with marcial cartridges, the gastric pouch was created approximating 15 to 30 mL volume. Subsequently, the omentum was retracted cephalad and divided down in the midline with the LigaSure. Ligament of Treitz was identified and the jejunum was measured out at 75 cm. The loop of jejunum was then sutured to the lateral staple line of the gastric pouch with 2-0 silks and a combination of running in the interrupted fashion. Then, the gastrojejunal anastomosis was then created with the Endo TIERNEY stapler with a 30 mm marcial TIERNEY stapler cartridge. The common gastroenterotomy was run closed with 3-0 PDS over a 34- Chinese gastric lavage tube. The jejunal loop was divided with an Endo TIERNEY stapler with a 45 mm marcial cartridge. The anastomosis was then tested with methylene blue dye solution instilled through the orogastric tube and no leak was identified. The Pollo limb was measured out 75 cm. At this point, a functional end-to-side jejunojejunostomy was created with the Endo TIERNEY stapler with a 60-mm marcial cartridge. Common enterotomy was run closed with 3-0 PDS, running it to and fro , tying it to itself. 3-0 silk was used in an interrupted [id number] fashion to close the mesenteric defect. Hemostasis was assured. Orientation of the Pollo limb was assured. The Taylor liver retractor was removed along with portion of devascularized omentum. The ports were then removed under direct visualization and carbon dioxide was released. The incisions were closed with 4-0 Monocryl in subcuticular fashion. Steri-Strips were applied. The patient tolerated this procedure well and extubated and transferred to the recovery room in stable condition. [id number]/[facility] #: [id number] JHONATAN
[2019-03-08] MEDS: HYDROmorphone INJ* 0.5 MG/0.5 ML SYRINGE IV SLOW PU PRN (03:29)
[2019-03-08] MEDS: Levothyroxine INJ* 100 MCG/5 ML VIAL IV SCH (05:52)
[2019-03-08] MEDS: Ketorolac INJ* 30 MG/ML 1 ML VIAL IV SCH ×4 (05:55→23:52)
[2019-03-08] MEDS: Heparin VIAL(*) 5000 UNITS/ML VIAL (FIVE THOUSAND) SUBCUT SCH ×3 (05:57→21:53)
[2019-03-08] MEDS: Lactated Ringers 1000 ML Bag* 1,000 ML IV SCH ×2 (06:01→12:44)
[2019-03-08] MEDS: Famotidine IV* 10 MG/ML 2 ML (20 mg) IV SLOW PU SCH ×2 (08:14→21:52)
--- NOTE | 2019-03-08 10:06 | PN ---
Progress Note - Progress Note Date of Service: 03/08/19 SOAP: Subjective: Pt is reporting no N/V. Has incisional pain. Objective: Vital Signs Temp 97.8 F 03/08/19 08:23 Pulse 59 03/08/19 08:23 Resp 16 03/08/19 08:23 BP 120/49 03/08/19 08:23 Pulse Ox 91 03/08/19 08:23 Gen: NAD Abd: incisions c/d/i; no erythema; soft and Min tender. Intake & Output 03/07/19 03/08/19 03/08/19 18:59 06:59 18:59 Intake Total 2400 1886 Output Total 500 325 Balance 2400 1386 -325 Weight 363 lb 2 oz Intake: IV Fluids 2400 1886 LR 2400 1886 Oral 0 Output: Urine 500 325 Assessment: POD#1 s/p LRYGB. Stable. Plan: Adv diet. PO meds. Amb. Home AM likely.
[2019-03-08] MEDS: D5W 1/2 NS KCl 20 Meq 1000 ML* 1,000 ML IV SCH ×2 (15:43→23:49)
[2019-03-09] MEDS: Levothyroxine INJ* 100 MCG/5 ML VIAL IV SCH (05:39)
[2019-03-09] MEDS: Ketorolac INJ* 30 MG/ML 1 ML VIAL IV SCH ×2 (05:43→12:06)
[2019-03-09] MEDS: Heparin VIAL(*) 5000 UNITS/ML VIAL (FIVE THOUSAND) SUBCUT SCH (05:45)
[2019-03-09] MEDS: D5W 1/2 NS KCl 20 Meq 1000 ML* 1,000 ML IV SCH (07:51)
--- NOTE | 2019-03-09 08:30 | PN ---
Progress Note - Progress Note Date of Service: 03/09/19 SOAP: Subjective: Feels well. No N/V. Less pain. Objective: Vital Signs Temp 98.8 F 03/09/19 07:26 Pulse 55 03/09/19 07:26 Resp 18 03/09/19 07:26 BP 138/76 03/09/19 07:26 Pulse Ox 96 03/09/19 07:26 Gen: NAD Abd: incisions c/d/i; no erythema; soft and NT Intake & Output 03/08/19 03/09/19 03/09/19 18:59 06:59 18:59 Intake Total 1212 1050 2051 Output Total 525 850 Balance 540 567 1675 Intake: IV Fluids 1152 2051 D5 1/2 NS 20 KCL 2051 LR 1152 Oral 60 1050 Output: Urine 525 850 Assessment: POD#2 s/p LRYGB. Doing well. Plan: Home today.
[2019-03-09] MEDS: Famotidine IV* 10 MG/ML 2 ML (20 mg) IV SLOW PU SCH (09:54)
[2019-03-09 11:22] VITALS: BP 140/83
[2019-03-10] MEDS ORDERED: Scopolamine PATCH Remove* 1 NOTE MISC PATCH OFF ONE (14:09)
--- NOTE | 2019-03-13 15:04 | DS ---
Discharge Summary Surgeon:Ann ROMO Admit Date:03/07/19 Discharge Date:03/09/19 Admission DX:Morbid Obesity Discharge DX:Morbid Obesity Condition at Discharge:Stable Date of D/C PEX: Vital Signs Temp 98.1 F 03/09/19 11:20 Pulse 51 03/09/19 11:20 Resp 18 03/09/19 11:20 BP 140/83 03/09/19 11:20 Pulse Ox 96 03/09/19 11:20 Chest:CTA CVS:RRR ABD:incisions C/D/I EXT:non tender Procedures Performed:Laparoscopic pollo en y gastric bypass Hospital Course:Taken to the OR on 03/07/19 for a laparoscopic Pollo en Y gastric bypass, then to the PACU and the SSU for post op care. Post operative course was uneventful, patient was started on bariatric clears on POD 1 and advanced well without nausea. Patient was D/C'd home in stable condition on 03/09/19 Discharge instructions were given to the patient regarding Diet, Medications, Activity, and post operative Follow up. All Questions were answered. Discharged Home in Stable Condition on 03/09/19
== END 2019-03-09 12:50 | disposition home or self-care (01) | DRG 621 ==
LOC: OR 10:06 → SSU 15:42
PROVIDERS: ADMIT Surgery; ATTEND Surgery
PROC: 0D164ZA Bypass Stomach to Jejunum, Percutaneous Endoscopic Approach (ICD-10-PCS; principal; 2019-03-07 11:45)
DX: E66.01 Morbid (severe) obesity due to excess calories (principal); G47.33 Obstructive sleep apnea (adult) (pediatric); E11.9 Type 2 diabetes mellitus without complications; I10 Essential (primary) hypertension; E03.9 Hypothyroidism, unspecified; F32.9 Major depressive disorder, single episode, unspecified; E78.5 Hyperlipidemia, unspecified; I77.810 Thoracic aortic ectasia; K76.0 Fatty (change of) liver, not elsewhere classified; Z68.43 Body mass index [BMI] 50.0-59.9, adult; Z79.890 Hormone replacement therapy; Z79.84 Long term (current) use of oral hypoglycemic drugs; Z79.899 Other long term (current) drug therapy; Z87.891 Personal history of nicotine dependence
CPT/HCPCS: 43644; A9270-GY; C1776; J0690; J1100; J1170; J1644; J1885; J2250; J2405; J2704; J2710; J3010

== ENCOUNTER 2023-04-27 16:35 | Observation (INO) ==
[2023-04-27 17:25] LABS: ABS Basophils 0.1 10^3/uL (0.0-0.1); ABS Eosinophils 0.3 10^3/uL (0.0-0.5); ABS Monocytes 0.5 10^3/uL (0.0-1.1); Eosinophil % 2.6 %; Hematocrit 35.5 % (38-53); Hemoglobin 11.6 g/dL (13.2-16.3); Lymphocyte % 10.6 %; Mean Corpuscular Hemoglobin 28.4 pg (27-33); Mean Corpuscular Hgb Conc 32.8 g/dL (31-36); Mean Corpuscular Volume 86.6 fL (80-97); Mean Platelet Volume 7.4 fL (7.5-11.2); Platelet Count 235 10^3/uL (150-450); Red Cell Distribution Width 15.7 % (12-17); White Blood Count 9.8 10^3/uL (3.6-10.2)
[2023-04-27 17:45] LABS: Albumin 3.9 g/dL (3.2-5.2); CRP High Sensitivity 53.14 mg/L (<2.00); Calcium 9.6 mg/dL (8.6-10.3); Creatinine, Serum 0.62 mg/dL (0.67-1.17); Globulin 4.1 g/dL (2-4); INR 1.3 (0.83-1.13); Potassium 3.5 mmol/L (3.5-5.0); Total Bilirubin 0.9 mg/dL (0.2-1.0); eGFR CKD-EPI 121.6 (>60)
[2023-04-27] MEDS ORDERED: Iodixanol (CONTRAST) 320 MG/ML 100 ML SDV IV ONE (18:19)
[2023-04-27] MEDS ORDERED: Furosemide 40 mg/4 ml IV VIAL IV SLOW PU ONE (18:43)
[2023-04-27 18:46] LABS: High Sensitivity Troponin 1 Hr 10 pg/mL (<20)
[2023-04-27] MEDS ORDERED: Albuterol 2.5mg/3 ml (0.083%) NEB.SOLN INH ONE (20:38)
[2023-04-27] MEDS: Senna TAB 8.6 mg TAB PO SCH (21:34)
[2023-04-27] MEDS: Enoxaparin 40 MG/0.4 ML SYR SUBCUT SCH (21:34)
[2023-04-27] MEDS ORDERED: Phytonadione Oral Solution 5 MG/25 ML UDC PO ONE (22:24)
[2023-04-27] MEDS: Ferric Gluconate IV 250 MG in NS 0.9% 250 ml 200 ML IVPB SCH (23:44)
[2023-04-28 05:47] LABS: ABS Eosinophils 0.3 10^3/uL (0.0-0.5); ABS Lymphocytes 1.5 10^3/uL (1.0-4.8); ABS Monocytes 0.3 10^3/uL (0.0-1.1); ABS Neutrophils 5.5 10^3/uL (1.5-7.6); Eosinophil % 3.9 %; Hematocrit 34.7 % (38-53); Hemoglobin 11.5 g/dL (13.2-16.3); Lymphocyte % 19.9 %; Mean Corpuscular Hemoglobin 28.4 pg (27-33); Mean Corpuscular Hgb Conc 33.1 g/dL (31-36); Mean Corpuscular Volume 85.9 fL (80-97); Mean Platelet Volume 7.5 fL (7.5-11.2); Nucleated Red Blood Cells % 0.1 %/100WBC (0.0-0.8); Platelet Count 234 10^3/uL (150-450); Red Blood Count 4.04 10^6/uL (4.06-5.63); Red Cell Distribution Width 15.8 % (12-17); White Blood Count 7.7 10^3/uL (3.6-10.2)
[2023-04-28] MEDS ORDERED: Bumetanide IV 0.25 MG/ML 4 ml VIAL (1 mg) IV SLOW PU SCH ×2 (06:00→13:00)
[2023-04-28 06:04] LABS: Albumin 3.9 g/dL (3.2-5.2); Calcium 9.6 mg/dL (8.6-10.3); Creatinine, Serum 0.64 mg/dL (0.67-1.17); Magnesium 1.8 mg/dL (1.9-2.7); Potassium 3.6 mmol/L (3.5-5.0); Total Bilirubin 0.9 mg/dL (0.2-1.0); Total Protein 7.9 g/dL (6.4-8.9); eGFR CKD-EPI 120.5 (>60)
[2023-04-28] MEDS ORDERED: Potassium Chlor 20 meq TAB.ER PO ONE (06:23)
[2023-04-28] MEDS ORDERED: Magnesium Sulfate 2 gm BAG 2 GM/50 ML BAG IVPB ONE (06:23)
[2023-04-28] MEDS: Multivitamins/Minerals TAB PO SCH (08:42)
[2023-04-28] MEDS: Cholecalciferol (VIT D3) 1,000 unit TAB PO SCH (08:42)
[2023-04-28] MEDS: Polyethylene Glycol 3350 17 GM PACKET PO SCH (08:45)
[2023-04-28] MEDS ORDERED: Sulfur Hexaflouride MICROSPHR 25 MG VIAL ONE (09:23)
[2023-04-28] MEDS ORDERED: Pneumococcal 20-Valent Conj 0.5 ML SYR Vaccine IM ONE (16:13)
[2023-04-28] MEDS: Enoxaparin 40 MG/0.4 ML SYR SUBCUT SCH (21:54)
[2023-04-28] MEDS: Senna TAB 8.6 mg TAB PO SCH (21:54)
[2023-04-28] MEDS: Ferric Gluconate IV 250 MG in NS 0.9% 250 ml 200 ML IVPB SCH (22:02)
[2023-04-29 06:46] LABS: ABS Basophils 0.1 10^3/uL (0.0-0.1); ABS Eosinophils 0.3 10^3/uL (0.0-0.5); ABS Lymphocytes 1.3 10^3/uL (1.0-4.8); ABS Monocytes 0.5 10^3/uL (0.0-1.1); ABS Neutrophils 4.8 10^3/uL (1.5-7.6); ABS Nucleated RBC 0.01 10^3/ul; Eosinophil % 4.8 %; Hematocrit 36.7 % (38-53); Lymphocyte % 18.4 %; Mean Corpuscular Hemoglobin 28.1 pg (27-33); Mean Corpuscular Hgb Conc 32.6 g/dL (31-36); Mean Corpuscular Volume 86.3 fL (80-97); Mean Platelet Volume 8.2 fL (7.5-11.2); Nucleated Red Blood Cells % 0.1 %/100WBC (0.0-0.8); Platelet Count 246 10^3/uL (150-450); Red Blood Count 4.25 10^6/uL (4.06-5.63); Red Cell Distribution Width 15.7 % (12-17)
[2023-04-29 07:04] LABS: Albumin/Globulin Ratio 1.1 (1-3); Calcium 9.3 mg/dL (8.6-10.3); Creatinine, Serum 0.66 mg/dL (0.67-1.17); Globulin 3.8 g/dL (2-4); Magnesium 1.9 mg/dL (1.9-2.7); Potassium 3.1 mmol/L (3.5-5.0); Total Bilirubin 0.9 mg/dL (0.2-1.0); Total Protein 7.8 g/dL (6.4-8.9); eGFR CKD-EPI 119.3 (>60)
[2023-04-29] MEDS: Polyethylene Glycol 3350 17 GM PACKET PO SCH (08:50)
[2023-04-29] MEDS: Multivitamins/Minerals TAB PO SCH (08:53)
[2023-04-29] MEDS: Cholecalciferol (VIT D3) 1,000 unit TAB PO SCH (08:54)
[2023-04-29] MEDS ORDERED: Pneumococcal Vac 23-Polyvalent IM ONE (09:00)
[2023-04-29] MEDS ORDERED: Furosemide 20 mg/2 ml IV VIAL IV SLOW PU ONE (09:00)
[2023-04-29] MEDS ORDERED: Potassium EFFERVES 25 meq TAB PO ONE (09:52)
[2023-04-29] MEDS ORDERED: Magnesium Sulfate IV 1GM/100ML 1 GM/100 ML BAG IV ONE (09:52)
[2023-04-29] MEDS: KCL 20 MEQ/100 ML IVPREMIX 20 MEQ/100 ML BAG IV SCH ×2 (12:00→14:09)
[2023-04-29 14:00] VITALS: BP 179/92
[2023-04-29 14:55] LABS: Calcium 9.6 mg/dL (8.6-10.3); Creatinine, Serum 0.66 mg/dL (0.67-1.17); Potassium 3.7 mmol/L (3.5-5.0); eGFR CKD-EPI 119.3 (>60)
== END 2023-04-29 16:55 | disposition home or self-care (01) ==
LOC: ED 16:35 → EDHOLD 20:45 → SUATTDRO 20:45 → INTOOBSV 20:45 → MEDTELE 04-28 05:30
PROVIDERS: ADMIT Internal Medicine; ATTEND Hospitalist